=== PATIENT | female | born 1950 | race Caucasian/White ===

== ENCOUNTER → 2016-11-16 | Outpatient (CLI) | payer OTHER ==
[~2016-11-16] MED LIST: DCS100C PO; EST1.25T PO; FENO48TA PO; FLUO20CA42 PO; HYDR1TAB75 PO; IBP800T PO; LOSA1TAB15 PO; OXYC-12 PO; WRF5T PO
== END ==
LOC: RAD 14:50
PROVIDERS: ATTEND Obstetrics & Gynecology
DX: Z12.31 Encounter for screening mammogram for malignant neoplasm of breast (principal)
CPT/HCPCS: 77067

== ENCOUNTER → 2017-11-17 | Outpatient (CLI) | payer OTHER ==
--- NOTE | 2017-11-17 12:05 | Diagnostic Imaging Report ---
Indication: Routine screening. Comparison is made with prior study from 11/16/2016 and 10/21/2015. 2-D and 3-D bilateral screening mammography was performed with CAD. The current study was also evaluated with a Computer Aided Detection (CAD) system. Scattered fibroglandular densities are identified bilaterally. Circumscribed nodule in the posterior lateral right breast appear stable consistent with benign etiology. Tiny benign-appearing nodular densities in left breast appear stable. There are benign calcifications. No spiculated mass or malignant-appearing micro-calcifications are seen. Axillae are unremarkable. IMPRESSION: BI-RADS category 2 No mammographic features suspicious for malignancy are identified. ACR BI-RADS Category 2: Benign findings. Result letter will be mailed to the patient. Note: At least 10% of breast cancer is not imaged by mammography. Dictated by: Dictated on workstation # [id number]
== END ==
LOC: RAD 07:17
PROVIDERS: ATTEND Obstetrics & Gynecology
DX: Z12.31 Encounter for screening mammogram for malignant neoplasm of breast (principal)
CPT/HCPCS: 77067

== ENCOUNTER 2018-03-28 05:30 | Outpatient (CLI) | payer OTHER ==
[~2018-03-28] VITALS: Ht 162.6 cm; Wt 90.7 kg
[2018-03-28] MEDS ORDERED: FENO48TA5 PO (10:27)
[2018-03-28] MEDS ORDERED: LOSA1TAB23 PO (10:27)
[2018-03-28] MEDS ORDERED: FLUO20CA42 PO (10:27)
[2018-03-28] MEDS ORDERED: ESTR0.5T PO (10:27)
[2018-03-28] MEDS ORDERED: SITA1TAB6 PO (10:27)
[2018-03-28] MEDS ORDERED: GLUC-144 PO (10:27)
== END 2018-03-28 12:26 | disposition home or self-care (01) ==
LOC: PREOP 05:30
PROVIDERS: ATTEND Specialist
DX: Z01.818 Encounter for other preprocedural examination (principal)

== ENCOUNTER 2018-04-03 06:15 | Day surgery (SDC) | payer OTHER ==
[~2018-04-03] VITALS: Ht 162.6 cm; Wt 90.7 kg
[~2018-04-03 06:15] MED LIST changes: +ESTR0.5T PO; +FENO48TA5 PO; +GLUC-144 PO; +LOSA1TAB23 PO; +SITA1TAB6 PO
[2018-04-03 06:20] VITALS: BP 151/85
[2018-04-03] MEDS ORDERED: acetaZOLAMIDE ER 500 MG CAP (DIAMOX SEQUELS) PO ONE (06:20)
[2018-04-03] MEDS ORDERED: EPINEPHrine INJECTION 1 MG/ML AMP INJ ONE (06:30)
[2018-04-03] MEDS ORDERED: POVIDONE (BETADINE) OPHTH SOLN 5% 30 ML OP ONE (06:30)
[2018-04-03] MEDS ORDERED: LIDOCAINE PF 1% 2 ML AMP IR PRN (06:30)
[2018-04-03] MEDS ORDERED: BSS 15 ML IR PRN (06:30)
[2018-04-03] MEDS ORDERED: MOXIFLOXACIN OPHTH SOLN 5 MG/ML 0.3 ML SYRINGE OP ONE (06:30)
[2018-04-03] MEDS ORDERED: TIMOLOL MALEATE 0.5% 5 ML (TIMOPTIC) BTL OU PRN (06:30)
[2018-04-03] MEDS: TETRACAINE 0.5% OPHTH SOLN 4 ML BTL (SINGLE DOSE ONLY) OU PRN ×4 (06:34→06:49)
[2018-04-03] MEDS: CYCLOPENTOLATE 1% (CYCLOGYL) 2 ML DROPS OP SCH ×3 (06:41→06:49)
[2018-04-03] MEDS: PHENYLEPHRINE 10% OPHTH (NEO-SYN) 5 ML BTL OU SCH ×3 (06:41→06:49)
[2018-04-03] MEDS ORDERED: MIDAZOLAM 2 MG/2 ML (VERSED) VIAL ONE (06:44)
--- NOTE | 2018-04-03 07:02 | Ophthalmologist Pre-Op Note ---
Pre-Operative Progress Note H&P Reviewed The H&P was reviewed, patient examined and no changes noted. Date H&P Reviewed: Apr 03, 2018 Time H&P Reviewed: 07:02 Pre-Op Dx Cataract, Left Eye NASH BAUTISTA MD Apr 03, 2018 07:02
--- NOTE | 2018-04-03 07:23 | Ophthalmology Operative Report ---
Cataract removal/placement IOL PREOPERATIVE DIAGNOSIS: Cataract Left Eye POSTOPERATIVE DIAGNOSIS: Cataract Left Eye PROCEDURE: Cataract removal and placement of posterior chamber implant, left eye SURGEON: Noam Bautista ANESTHESIA: Topical with sedation COMPLICATIONS: None ESTIMATED BLOOD LOSS: Minimal DESCRIPTION OF PROCEDURE: After proper informed consent was obtained, the patient, a 67 female, was taken to the Operating Room and the left eye was anesthetized with tetracaine. The left eye was then prepped and draped in the usual manner. A wire lid speculum was placed. A paracentesis was made at the left hand position. Preservative free lidocaine was injected into the anterior chamber followed by viscoelastic. A clear corneal incision was made in the temporal position. A capsulorrhexis was preformed and the central nuclear and cortical material were removed. The posterior capsule was polished and an Derrick 21.0 [id number] IOL was placed into the capsular bag. The residual viscoelastic was aspirated and balanced saline solution was injected into the anterior chamber. Moxifloxacin was injected into the anterior chamber. The wound was checked and found to be water tight. The patient tolerated the procedure well without complications. NOAM BAUTISTA MD Apr 03, 2018 07:23
[2018-04-03 07:43] VITALS: BP 136/77
--- NOTE | 2018-04-03 13:15 | Anesthesia-General Post-Op ---
MAC Patient Condition Mental Status/LOC: Same as Preop Cardiovascular: Satisfactory Nausea/Vomiting: Absent Respiratory: Satisfactory Pain: Controlled Complications: Absent Post Op Complications Complications None Follow Up Care/Instructions Patient Instructions None needed. Anesthesiology Discharge Order Discharge Order Patient is doing well, no complaints, stable vital signs, no apparent adverse anesthesia problems. No complications reported per nursing. DEBI TIJERINA CRNA Apr 03, 2018 13:14
== END 2018-04-03 07:35 | disposition home or self-care (01) ==
LOC: SDC 06:15
PROVIDERS: ATTEND Specialist
DX: H25.12 Age-related nuclear cataract, left eye (principal); E11.36 Type 2 diabetes mellitus with diabetic cataract; Z79.84 Long term (current) use of oral hypoglycemic drugs; Z79.899 Other long term (current) drug therapy
CPT/HCPCS: 82962

== ENCOUNTER 2018-08-03 15:21 | Outpatient (CLI) | payer OTHER ==
[~2018-08-03] VITALS: Ht 162.6 cm; Wt 90.7 kg
== END 2018-08-03 15:27 | disposition home or self-care (01) ==
LOC: PREOP 15:21
PROVIDERS: ATTEND Specialist
DX: Z01.818 Encounter for other preprocedural examination (principal)

== ENCOUNTER 2018-08-04 09:08 | Day surgery (SDC) | payer OTHER ==
[~2018-08-04] VITALS: Ht 162.6 cm; Wt 90.7 kg
[2018-08-04] MEDS ORDERED: LIDOCAINE PF 1% 2 ML AMP IR PRN (09:15)
[2018-08-04] MEDS ORDERED: POVIDONE (BETADINE) OPHTH SOLN 5% 30 ML OP ONE (09:15)
[2018-08-04] MEDS ORDERED: TIMOLOL MALEATE 0.5% 5 ML (TIMOPTIC) BTL OU PRN (09:15)
[2018-08-04] MEDS ORDERED: MOXIFLOXACIN OPHTH SOLN 5 MG/ML 0.3 ML SYRINGE OP ONE (09:15)
[2018-08-04] MEDS: TETRACAINE 0.5% OPHTH SOLN 4 ML BTL (SINGLE DOSE ONLY) OU PRN ×4 (09:21→09:38)
[2018-08-04] MEDS: PHENYLEPHRINE 10% OPHTH (NEO-SYN) 5 ML BTL OU SCH ×3 (09:28→09:38)
[2018-08-04] MEDS: CYCLOPENTOLATE 1% (CYCLOGYL) 2 ML DROPS OP SCH ×3 (09:28→09:38)
[2018-08-04 09:36] VITALS: BP 126/81
[2018-08-04] MEDS ORDERED: MIDAZOLAM 2 MG/2 ML (VERSED) VIAL ONE (09:54)
--- NOTE | 2018-08-04 10:16 | Ophthalmologist Pre-Op Note ---
Pre-Operative Progress Note H&P Reviewed The H&P was reviewed, patient examined and no changes noted. Date H&P Reviewed: Aug 04, 2018 Time H&P Reviewed: 10:15 Pre-Op Dx Cataract, Right Eye NASH BAUTISTA MD Aug 04, 2018 10:15
--- OUTSIDE RECORDS SUMMARY | 2018-08-04 10:35 | XMS REPORT | Continuity of Care Document ---
Author Author [facility] Organization [facility] Address Unknown Phone Unavailable Allergies Active Description Code Type Severity Reaction Onset Reported/Identified Relationship to Patient Clinical Status Yes No Known Drug Allergies [id number] Drug Allergy Unknown N/A 01/20/2009 Medications There is no data. Problems Date Dx Coded Attending Type Code Diagnosis Diagnosed By 05/19/2010 Ot 401.9 HYPERTENSION NOS 05/19/2010 Ot 618.5 POSTOP VAGINAL PROLAPSE 02/04/2012 Ot 250.00 DIAB LINDA WO COMPL, TYPE II OR UNSPEC TY 02/04/2012 Ot 401.9 HYPERTENSION NOS 02/04/2012 Ot 715.36 LOC OSTEOARTH NOS-L/LEG 04/03/2012 Ot V43.65 KNEE JOINT REPLACEMENT STATUS 04/03/2012 Ot V54.81 AFTERCARE FOLLOWING JOINT REPLACEMENT 04/03/2012 Ot V57.1 PHYSICAL THERAPY NEC 05/10/2012 Ot 415.19 OTH PULMON EMBOLISM/INFARCT 05/10/2012 Ot V43.65 KNEE JOINT REPLACEMENT STATUS 05/10/2012 Ot V58.61 ANTICOAGULANTS,LT,CURRENT USE 02/16/2013 JESSE REED MD Ot 211.3 BENIGN NEOPLASM LG BOWEL 02/16/2013 JESSE REED MD Ot 562.10 DIVERTICULOSIS COLON (W/O MENT OF HEMORR 02/16/2013 JESSE REED MD Ot V76.51 SCREEN MAL NEOP-COLON 10/15/2014 Ot 285.9 10/15/2014 Ot 618.6 10/15/2014 Ot V72.63 10/15/2014 Ot V74.8 10/15/2014 Ot V76.12 10/15/2014 Ot 715.36 10/15/2014 Ot 791.9 10/15/2014 Ot V72.63 10/15/2014 Ot V72.81 10/15/2014 Ot V74.8 10/15/2014 Ot 415.19 10/15/2014 Ot V43.65 10/15/2014 Ot V58.61 10/15/2014 Ot 784.2 10/15/2014 Ot V76.12 10/15/2014 DEREK CASTANO, JESSE Fallon Ot V72.84 10/15/2014 JUNIOR CASTANO, JC Verduzco Ot 793.89 10/15/2014 JUNIOR CASTANO, JC Verduzco Ot V76.12 10/15/2014 JUNIOR CASTANO, JC Verduzco Ot 610.0 10/15/2014 JUNIOR CASTANO, JC Verduzco Ot 793.80 11/08/2014 JUNIOR CASTANO, JC Verduzco Ot V76.12 10/21/2015 Ot 285.9 ANEMIA NOS 10/21/2015 Ot 618.6 VAGINAL ENTEROCELE 10/21/2015 Ot V72.63 PRE- PROCEDURAL LABORATORY EXAMINATION 10/21/2015 Ot V74.8 SCREEN- BACTERIAL DIS NEC 10/21/2015 Ot V76.12 OTH SCREEN MAMMO-MALIGN NEOPLASM OF RONNIE 10/21/2015 Ot 715.36 LOC OSTEOARTH NOS-L/LEG 10/21/2015 Ot 791.9 ABN URINE FINDINGS NEC 10/21/2015 Ot V72.63 PRE- PROCEDURAL LABORATORY EXAMINATION 10/21/2015 Ot V72.81 EXAM-PRE- OPERATIVE CARDIOVASCULAR 10/21/2015 Ot V74.8 SCREEN- BACTERIAL DIS NEC 10/21/2015 Ot 415.19 OTH PULMON EMBOLISM/INFARCT 10/21/2015 Ot V43.65 KNEE JOINT REPLACEMENT STATUS 10/21/2015 Ot V58.61 ANTICOAGULANTS,LT,CURRENT USE 10/21/2015 Ot 784.2 SWELLING IN HEAD NECK 10/21/2015 Ot V76.12 OTH SCREEN MAMMO-MALIGN NEOPLASM OF RONNIE 10/21/2015 DEREK CASTANO, JESSE Fallon Ot V72.84 EXAM PRE-OPERATIVE NOS 10/21/2015 JUNIOR CASTANO, JC Verduzco Ot 793.89 OTH (ABN) FINDINGS ON RADIOLOGICAL EXAMI 10/21/2015 JC PACHECO MD Ot V76.12 OTH SCREEN MAMMO-MALIGN NEOPLASM OF RONNIE 10/21/2015 JC PACHECO MD Ot 610.0 SOLITARY CYST OF BREAST 10/21/2015 JC APCHECO MD Ot 793.80 UNSPEC ABNORMAL MAMMOGRAM 10/21/2015 JC PACHECO MD Ot V76.12 OTH SCREEN MAMMO-MALIGN NEOPLASM OF RONNIE 10/23/2015 JC PACHECO MD Ot Z12.31 ENCNTR SCREEN MAMMOGRAM FOR MALIGNANT NE 11/03/2015 Ot R92.8 OTH ABN AND INCONCLUSIVE FINDINGS ON DX 11/03/2015 Ot R92.8 OTH ABN AND INCONCLUSIVE FINDINGS ON DX 11/03/2015 Ot R92.8 OTH ABN AND INCONCLUSIVE FINDINGS ON DX 11/06/2015 Ot R92.8 OTH ABN AND INCONCLUSIVE FINDINGS ON DX 11/27/2015 Ot R92.8 OTH ABN AND INCONCLUSIVE FINDINGS ON DX 06/02/2016 Ot 715.36 LOC OSTEOARTH NOS-L/LEG 06/02/2016 Ot 791.9 ABN URINE FINDINGS NEC 06/02/2016 Ot V72.63 PRE- PROCEDURAL LABORATORY EXAMINATION 06/02/2016 Ot V72.81 EXAM-PRE- OPERATIVE CARDIOVASCULAR 06/02/2016 Ot V74.8 SCREEN- BACTERIAL DIS NEC 06/02/2016 Ot 415.19 OTH PULMON EMBOLISM/INFARCT 06/02/2016 Ot V43.65 KNEE JOINT REPLACEMENT STATUS 06/02/2016 Ot V58.61 ANTICOAGULANTS,LT,CURRENT USE 06/02/2016 Ot 784.2 SWELLING IN HEAD NECK 06/02/2016 Ot V76.12 OTH SCREEN MAMMO-MALIGN NEOPLASM OF RONNIE 06/02/2016 DEREK CASTANO, JESSE Fallon Ot V72.84 EXAM PRE-OPERATIVE NOS 06/02/2016 JC PACHECO MD Ot 793.89 OTH (ABN) FINDINGS ON RADIOLOGICAL EXAMI 06/02/2016 JC PACHECO MD, Ot V76.12 OTH SCREEN MAMMO-MALIGN NEOPLASM OF RONNIE 06/02/2016 JC PACHECO MD Ot 610.0 SOLITARY CYST OF BREAST 06/02/2016 JC PACHECO MD Ot 793.80 UNSPEC ABNORMAL MAMMOGRAM 06/02/2016 JC PACHECO MD Ot V76.12 OTH SCREEN MAMMO-MALIGN NEOPLASM OF RONNIE 06/02/2016 JC PACHECO MD, Ot Z12.31 ENCNTR SCREEN MAMMOGRAM FOR MALIGNANT NE 06/02/2016 Ot R92.8 OTH ABN AND INCONCLUSIVE FINDINGS ON DX 06/03/2016 Ot 715.36 LOC OSTEOARTH NOS-L/LEG 06/03/2016 Ot 791.9 ABN URINE FINDINGS NEC 06/03/2016 Ot V72.63 PRE- PROCEDURAL LABORATORY EXAMINATION 06/03/2016 Ot V72.81 EXAM-PRE- OPERATIVE CARDIOVASCULAR 06/03/2016 Ot V74.8 SCREEN- BACTERIAL DIS NEC 06/03/2016 Ot 415.19 OTH PULMON EMBOLISM/INFARCT 06/03/2016 Ot V43.65 KNEE JOINT REPLACEMENT STATUS 06/03/2016 Ot V58.61 ANTICOAGULANTS,LT,CURRENT USE 06/03/2016 Ot 784.2 SWELLING IN HEAD NECK 06/03/2016 Ot V76.12 OTH SCREEN MAMMO-MALIGN NEOPLASM OF RONNIE 06/03/2016 DEREK CASTANO, JESSE Fallon Ot V72.84 EXAM PRE-OPERATIVE NOS 06/03/2016 JC PACHECO MD Ot 793.89 OTH (ABN) FINDINGS ON RADIOLOGICAL EXAMI 06/03/2016 JC PACHECO MD, Ot V76.12 OTH SCREEN MAMMO-MALIGN NEOPLASM OF RONNIE 06/03/2016 JC PACHECO MD Ot 610.0 SOLITARY CYST OF BREAST 06/03/2016 JC PACHECO MD Ot 793.80 UNSPEC ABNORMAL MAMMOGRAM 06/03/2016 JC PACHECO MD, Ot V76.12 OTH SCREEN MAMMO-MALIGN NEOPLASM OF RONNIE 06/03/2016 JC PACHECO MD, Ot Z12.31 ENCNTR SCREEN MAMMOGRAM FOR MALIGNANT NE 06/03/2016 Ot R92.8 OTH ABN AND INCONCLUSIVE FINDINGS ON DX 11/17/2016 JC PACHECO MD, Ot Z12.31 ENCNTR SCREEN MAMMOGRAM FOR MALIGNANT NE 11/18/2017 JC PACHECO MD, Ot Z12.31 ENCNTR SCREEN MAMMOGRAM FOR MALIGNANT NE 03/28/2018 NASH BAUTISTA MD Ot Z01.818 ENCOUNTER FOR OTHER PREPROCEDURAL EXAMIN 04/06/2018 NASH BAUTISTA MD Ot E11.36 TYPE 2 DIABETES MELLITUS WITH DIABETIC C 04/06/2018 NASH BAUTISTA MD Ot H25.12 AGE-RELATED NUCLEAR CATARACT, LEFT EYE 04/06/2018 NASH BAUTISTA MD Ot Z79.84 LONGTERM (CURRENT) USE OF ORAL HYPOGLYC 04/06/2018 NASH BAUTISTA MD Ot Z79.899 OTHER LONGTERM (CURRENT) DRUG THERAPY 08/03/2018 NASH BAUTISTA MD Ot Z01.818 ENCOUNTER FOR OTHER PREPROCEDURAL EXAMIN 08/03/2018 NASH BAUTISTA MD, Ot Z01.818 ENCOUNTER FOR OTHER PREPROCEDURAL EXAMIN Procedures Code Description Performed By Performed On 81.54 TOTAL KNEE REPLACEMENT 01/31/2012 Results Test Result Range Capillary blood glucose measurement by glucometer (mass/volume) - 04/03/18 06: 27 Capillary blood glucose measurement by glucometer (mass/volume) 115 mg/dL 70-110 Encounters ACCT No. Visit Date/Time Discharge Status Pt. Type Provider Facility Loc./Unit Complaint [id number] 08/03/2018 15:21:00 08/03/2018 15:27:00 DIS Outpatient NASH BAUTISTA MD [facility] PREOP RIGHT CATARACT [id number] 04/18/2018 12:00:00 04/18/2018 23:59:59 CLS Preadmit NASH BAUTISTA MD [facility] CATARACT RIGHT EYE [id number] 04/03/2018 06:15:00 04/03/2018 07:35:00 DIS Outpatient NASH BAUTISTA MD [facility] CATARACT LEFT EYE [id number] 03/28/2018 05:30:00 03/28/2018 12:26:00 DIS Outpatient NASH BAUTISTA MD [facility] PREOP LEFT CATARACT [id number] 11/17/2017 07:17:00 11/17/2017 23:59:59 CLS Outpatient JC PACHECO MD [facility] RAD ROUTINE [id number] 11/16/2016 14:50:00 11/16/2016 23:59:59 CLS Outpatient JC PACHECO MD [facility] RAD Z12.31N ROUTINE SCREENING [id number] 10/21/2015 14:58:00 10/21/2015 23:59:59 CLS Outpatient JC PACHECO MD [facility] RAD SCREENING [id number] 10/15/2014 09:18:00 10/15/2014 23:59:59 CLS Outpatient JC PACHECO MD [facility] RAD SCREENING [id number] 01/08/2014 13:23:00 01/08/2014 23:59:59 CLS Outpatient JC PACHECO MD [facility] RAD 6 MONTH FOLLOW UP [id number] 07/03/2013 12:42:00 07/03/2013 23:59:59 CLS Outpatient JC PACHECO MD [facility] RAD ABNORMAL MAMMO [id number] 06/27/2013 09:14:00 06/27/2013 23:59:59 CLS Outpatient JC PACHECO MD [facility] RAD SCREENING [id number] 02/16/2013 07:23:00 02/16/2013 10:40:00 DIS Outpatient JESSE REED MD [facility] SCREENING [id number] 02/14/2013 07:19:00 02/14/2013 23:59:59 CLS Outpatient JESSE REED MD [facility] PREOP SCREENING [id number] 08/04/2018 12:30:00 PEN PreadNASH Toro MD [facility] SD RIGHT CATARACT [id number] 10/31/2015 07:51:00 Document Registration [id number] 10/15/2014 09:19:00 Document Registration [id number] 05/22/2012 13:25:00 Document Registration [id number] 05/11/2012 00:00:00 Document Registration [id number] 03/23/2012 14:50:00 Document Registration [id number] 02/22/2012 09:44:00 Document Registration [id number] 01/31/2012 06:06:00 Document Registration [id number] 01/27/2012 13:25:00 Document Registration [id number] 10/28/2010 13:50:00 Document Registration [id number] 05/18/2010 06:26:00 Document Registration [id number] 05/15/2010 10:09:00 Document Registration
--- NOTE | 2018-08-04 10:38 | Ophthalmology Operative Report ---
Cataract removal/placement IOL PREOPERATIVE DIAGNOSIS: Cataract Right Eye POSTOPERATIVE DIAGNOSIS: Cataract Right Eye PROCEDURE: Cataract removal and placement of posterior chamber implant, right eye SURGEON: Noam Bautista ANESTHESIA: Topical with sedation COMPLICATIONS: None ESTIMATED BLOOD LOSS: Minimal DESCRIPTION OF PROCEDURE: After proper informed consent was obtained, the patient, a 68 female, was taken to the Operating Room and the right eye was anesthetized with tetracaine. The right eye was then prepped and draped in the usual manner. A wire lid speculum was placed. A paracentesis was made at the left hand position. Preservative free lidocaine was injected into the anterior chamber followed by viscoelastic. A clear corneal incision was made in the temporal position. A capsulorrhexis was preformed and the central nuclear and cortical material were removed. The posterior capsule was polished and Derrick 21.0 [id number] IOL was placed into the capsular bag. The residual viscoelastic was aspirated and balanced saline solution was injected into the anterior chamber. Moxifloxacin was injected into the anterior chamber. The wound was checked and found to be water tight. The patient tolerated the procedure well without complications. NOAM BAUTISTA MD Aug 04, 2018 10:38
[2018-08-04 10:49] VITALS: BP 116/62
[2018-08-04] MEDS ORDERED: acetaZOLAMIDE ER 500 MG CAP (DIAMOX SEQUELS) PO ONE (11:00)
--- NOTE | 2018-08-04 13:14 | Anesthesia-General Post-Op ---
MAC Patient Condition Mental Status/LOC: Same as Preop Cardiovascular: Satisfactory Nausea/Vomiting: Absent Respiratory: Satisfactory Pain: Controlled Complications: Absent Post Op Complications Complications None Follow Up Care/Instructions Patient Instructions None needed. Anesthesiology Discharge Order Discharge Order Patient is doing well, no complaints, stable vital signs, no apparent adverse anesthesia problems. No complications reported per nursing. CABRERA GARCIA CRNA Aug 04, 2018 13:14
== END 2018-08-04 10:49 | disposition home or self-care (01) ==
LOC: SDC 09:08
PROVIDERS: ATTEND Specialist
DX: H25.11 Age-related nuclear cataract, right eye (principal); E11.36 Type 2 diabetes mellitus with diabetic cataract; E78.00 Pure hypercholesterolemia, unspecified; Z79.84 Long term (current) use of oral hypoglycemic drugs; Z79.899 Other long term (current) drug therapy
CPT/HCPCS: 82962

== ENCOUNTER 2018-09-11 06:17 | Outpatient (CLI) | payer OTHER ==
[~2018-09-11] VITALS: Ht 162.6 cm; Wt 90.7 kg
[2018-09-11] MEDS ORDERED: LOVA20TA2 PO (12:32)
== END 2018-09-11 12:45 | disposition home or self-care (01) ==
LOC: PREOP 06:17
PROVIDERS: ATTEND Internal Medicine
DX: Z01.818 Encounter for other preprocedural examination (principal)

== ENCOUNTER 2018-09-15 08:49 | Day surgery (SDC) | payer OTHER ==
--- NOTE | 2018-09-08 04:32 | HISTORY AND PHYSICAL ---
DATE OF SERVICE: COLONOSCOPY HISTORY AND PHYSICAL DATE OF ADMISSION: 09/15/2018 HISTORY OF PRESENT ILLNESS: The patient is a 68-year-old white female, referred by Dr. Amezquita for screening colonoscopy. I performed one other colonoscopy on her five years ago, at which time she had a sessile tubular adenoma removed from the sigmoid colon and a hyperplastic polyp also removed from the sigmoid colon. The patient reports that she has been feeling well. There have been no changes in family history. She is not aware of any family history for GI tract malignancy including colon cancer. She has had no change in bowel habits and denies melena or bright red blood per rectum. She also denies abdominal pain. PAST MEDICAL HISTORY: Significant for hypertension, hyperlipidemia and osteoarthritis predominantly involving the knees and depression. She has no past history of cardiovascular disease or cerebrovascular disease. PAST SURGICAL HISTORY: Significant for bilateral total knee replacement greater than 5 years ago. She had ROSALINDA and BSO for benign reasons roughly 8 to 9 years ago and underwent rectocele repair in 2010 and bunionectomy in 1999. She has had I believe bilateral cataract extraction in the last several years and left macular hole repair. MEDICATIONS ON ADMISSION: Include Durezol 0.05% eye drops bilaterally, estradiol 1 mg daily, Janumet daily, losartan 100/25 daily, fenofibrate 160 mg daily, fluoxetine 20 mg daily and Osteo Bi-Flex b.i.d. 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 PHYSICAL EXAMINATION: GENERAL: Reveals a pleasant white female who appears to be in no acute distress. VITAL SIGNS: Compared to five years ago, her weight is down 25 pounds, 211 pounds, blood pressure 122/80. HEENT: Unremarkable. Sclerae are nonicteric. NECK: Revealed no JVD, adenopathy or bruits. CHEST: Clear to auscultation. CARDIOVASCULAR: Reveals regular rate and rhythm without murmur, S3 or S4. ABDOMEN: Soft, supple without mass, organomegaly or tenderness. EXTREMITIES: Reveal no cyanosis, clubbing or edema. ASSESSMENT AND PLAN: The patient is set up for screening colonoscopy on 09/15/2018. Prep instructions with Suprep kit were given and questions were answered. I thank you for the referral of this pleasant lady. Job ID: [id number] DocumentID: [id number] Dictated Date: 09/05/2018 12:06:17 Hospice Manager Date: 09/05/2018 12:29:50 Dictated By: JESSE REED MD
[~2018-09-15] VITALS: Ht 162.6 cm; Wt 90.7 kg
[~2018-09-15 08:49] MED LIST changes: +LOVA20TA2 PO
--- OUTSIDE RECORDS SUMMARY | 2018-09-15 08:53 | XMS REPORT | Continuity of Care Document ---
Author Author [facility] Organization [facility] Address Unknown Phone Unavailable Allergies Active Description Code Type Severity Reaction Onset Reported/Identified Relationship to Patient Clinical Status Yes No Known Drug Allergies [id number] Drug Allergy Unknown N/A 01/20/2009 Medications There [...] 610.0 SOLITARY CYST OF BREAST 10/21/2015 JC PACHECO MD Ot 793.80 UNSPEC ABNORMAL MAMMOGRAM 10/21/2015 [...] EYE 04/06/2018 NASH BAUTISTA MD Ot Z79.84 [facility] (CURRENT) USE OF ORAL HYPOGLYC 04/06/2018 NASH BAUTISTA MD Ot Z79.899 OTHER [facility] (CURRENT) DRUG THERAPY 08/03/2018 NASH BAUTISTA MD Ot Z01.818 ENCOUNTER FOR OTHER PREPROCEDURAL EXAMIN 08/03/2018 NASH BAUTISTA MD Ot Z01.818 ENCOUNTER FOR OTHER PREPROCEDURAL EXAMIN 08/04/2018 NASH BAUTISTA MD Ot E11.36 TYPE 2 DIABETES MELLITUS WITH DIABETIC C 08/04/2018 NASH BAUTISTA MD Ot E78.00 PURE HYPERCHOLESTEROLEMIA, UNSPECIFIED 08/04/2018 NASH BAUTISTA MD Ot H25.11 AGE-RELATED NUCLEAR CATARACT, RIGHT EYE 08/04/2018 NASH BAUTISTA MD Ot Z79.84 DIRECTOR COUNCIL ON AGING (CURRENT) USE OF ORAL HYPOGLYC 08/04/2018 NASH BAUTISTA MD Ot Z79.899 OTHER [facility] (CURRENT) DRUG THERAPY 09/11/2018 JESSE REED MD Ot Z01.818 ENCOUNTER FOR OTHER PREPROCEDURAL EXAMIN Procedures Code Description Performed By Performed On 81.54 TOTAL KNEE REPLACEMENT 01/31/2012 Results Test Result Range Capillary blood glucose measurement by glucometer (mass/volume) - 04/03/18 06: 27 Capillary blood glucose measurement by glucometer (mass/volume) 115 mg/dL 70-110 Capillary blood glucose measurement by glucometer (mass/volume) - 08/04/18 09: 42 Capillary blood glucose measurement by glucometer (mass/volume) 126 mg/dL 70-110 Encounters ACCT No. Visit Date/Time Discharge Status Pt. Type Provider Facility Loc./Unit Complaint [id number] 09/11/2018 06:17:00 09/11/2018 12:45:00 DIS Outpatient JESSE REED MD [facility] PREOP COLONOSCOPY [id number] 08/04/2018 09:08:00 08/04/2018 10:49:00 DIS Outpatient NASH BAUTISTA MD [facility] SDC RIGHT CATARACT [id number] 08/03/2018 15:21:00 08/03/2018 15:27:00 DIS Outpatient NASH BAUTISTA MD [facility] PREOP RIGHT CATARACT [id number] 04/18/2018 12:00:00 04/18/2018 23:59:59 CLS Preadmit NASH BAUTISTA MD [facility] SDC CATARACT RIGHT EYE [id number] 04/03/2018 06:15:00 04/03/2018 07:35:00 DIS Outpatient NASH BAUTISTA MD [facility] SDC CATARACT LEFT EYE [id number] 03/28/2018 05:30:00 03/28/2018 12:26:00 DIS Outpatient NASH BAUTISTA MD [facility] PREOP LEFT CATARACT [id number] 11/17/2017 07:17:00 11/17/2017 23:59:59 CLS Outpatient JC PACHECO MD [facility] RAD ROUTINE [id number] 11/16/2016 14:50:00 11/16/2016 23:59:59 CLS Outpatient JC PACHECO MD [facility] RAD Z12.31N ROUTINE SCREENING [id number] 10/21/2015 14:58:00 10/21/2015 23:59:59 CLS Outpatient JC PACHECO MD [facility] RAD SCREENING [id number] 10/15/2014 09:18:00 10/15/2014 23:59:59 CLS Outpatient JC PACHECO MD [facility] RAD SCREENING [id number] 01/08/2014 13:23:00 01/08/2014 23:59:59 CLS Outpatient JC PACHECO MD [facility] RAD 6 MONTH FOLLOW UP [id number] 07/03/2013 12:42:00 07/03/2013 23:59:59 CLS Outpatient JC PACHECO MD [facility] RAD ABNORMAL MAMMO [id number] 06/27/2013 09:14:00 06/27/2013 23:59:59 CLS Outpatient JC PACHECO MD [facility] RAD SCREENING [id number] 02/16/2013 07:23:00 02/16/2013 10:40:00 DIS Outpatient JESSE REED MD [facility] SDC SCREENING [id number] 02/14/2013 07:19:00 02/14/2013 23:59:59 CLS Outpatient JESSE REED MD [facility] PREOP SCREENING [id number] 09/15/2018 10:00:00 PEN Preadmit JESSE REED MD [facility] ENDO SCREENING [id number] 10/31/2015 07:51:00 Document Registration [id number] 10/15/2014 09:19:00 Document Registration [id number] 05/22/2012 13:25:00 Document Registration [id number] 05/11/2012 00:00:00 Document Registration [id number] 03/23/2012 14:50:00 Document Registration [id number] 02/22/2012 09:44:00 Document Registration [id number] 01/31/2012 06:06:00 Document Registration [id number] 01/27/2012 13:25:00 Document Registration [id number] 10/28/2010 13:50:00 Document Registration [id number] 05/18/2010 06:26:00 Document Registration [id number] 05/15/2010 10:09:00 Document Registration
[2018-09-15] MEDS ORDERED: LACTATED RINGERS 1,000 ML IV ONE (09:06)
[2018-09-15] MEDS ORDERED: LACTATED RINGERS 1,000 ML IV STA (09:33)
[2018-09-15] MEDS ORDERED: LIDOCAINE JELLY 2% 6 ML SYRINGE MM PRN (09:45)
[2018-09-15] MEDS ORDERED: fentaNYL INJECTION 100 MCG/2 ML AMP IVP ONE (09:45)
[2018-09-15] MEDS ORDERED: MIDAZOLAM 2 MG/2 ML (VERSED) VIAL IVP ONE (09:45)
[2018-09-15 09:57] VITALS: BP 127/73
[2018-09-15] MEDS ORDERED: MIDAZOLAM 2 MG/2 ML (VERSED) VIAL ONE ×2 (10:11)
[2018-09-15] MEDS ORDERED: fentaNYL INJECTION 100 MCG/2 ML AMP ONE (10:12)
[2018-09-15] MEDS ORDERED: LIDOCAINE JELLY 2% 6 ML SYRINGE ONE (10:12)
--- NOTE | 2018-09-15 10:28 | Pre-Op Note & Conscious Sedat ---
Pre-Operative Progress Note H&P Reviewed The H&P was reviewed, patient examined and no changes noted. Date H&P Reviewed: Sep 15, 2018 Time H&P Reviewed: 10:00 Conscious Sedation Pre-Proced ASA Score 2 For ASA 3 and 4: Consider anesthesia and medical clearance. Also, for patients with a history of failed moderate sedation consider anesthesia. Airway Lungs Heart ASA score ASA 1: a normal healthy patient ASA 2: a patient with a mild systemic disease (mid diabetes, controlled hypertension, obesity ASA 3: a patient with a severe systemic disease that limits activity (angina , COPD, prior Myocardial infarction) ASA 4: a patient with an incapacitating disease that is a constant threat to life (CHF, renal failure) ASA 5: a moribund patient not expected to survive 24 hrs. (ruptured aneurysm) ASA 6: a declared brain- patient whose organs are being harvested. For emergent operations, add the letter E after the classification Mallampati Classification Grade 2 Sedation Plan Analgesia, Amnesia, Plan communicated to team members, Discussed options with patient/fam, Discussed risks with patient/fam The patient is an appropriate candidate to undergo the planned procedure, sedation, and anesthesia. The patient immediately re-assessed prior to indication. JESSE REED MD Sep 15, 2018 10:28
[2018-09-15 10:55] VITALS: BP 127/70
[2018-09-15 11:25] VITALS: BP 125/65
[2018-09-15 11:35] VITALS: BP 125/65
--- NOTE | 2018-09-15 20:08 | OPERATIVE REPORT ---
DATE OF SERVICE: 09/15/2018 COLONOSCOPY SUMMARY INDICATION FOR THE PROCEDURE: Screening colonoscopy. The patient was placed in left lateral decubitus position. Prior to undergoing colonoscopy, digital rectal evaluation was performed. Anal sphincter tone was normal and the perianal reflex was intact. No abnormalities were noted on digital inspection of the anal canal or distal rectal vault. The colonoscope was then inserted into the rectum under direct visualization and advanced to the cecum. The cecum was identified by identification of the ileocecal valve and cecal strap. Photographic documentation was obtained. Careful inspection was made as the colonoscope was withdrawn. FINDINGS: There was no evidence for internal or external hemorrhoids and the rectum was unremarkable. The sigmoid colon revealed a few small proximal diverticulum, otherwise unremarkable. The descending colon was unremarkable. Present in the distal transverse colon was a diminutive 3 mm sessile polyp that was biopsied, ablated and submitted for histopathology. The remainder of the transverse colon and hepatic flexure was unremarkable. Present in the distal ascending colon was a diminutive 3 mm sessile polyp. It was biopsied and ablated and submitted for histopathology with minimal blood loss. A similar polyp was noted in the proximal ascending colon, it was well biopsied and ablated with minimal blood loss. The cecum was unremarkable. ASSESSMENT: Three small polyps were removed today, one from the distal transverse colon, the other 2 from the ascending colon, one proximally and one distally. Mild diverticular disease confined to the sigmoid colon was present. No other abnormalities were noted on today's procedure. As long as there are no surprises on histopathology report, we would advocate consideration for repeat surveillance colonoscopy in 3 years. I thank you for the referral of this pleasant lady. Sincerely, Job ID: [id number] DocumentID: [id number] Dictated Date: 09/15/2018 11:43:27 [employer] Date: 09/15/2018 20:07:50 Dictated By: JESSE REED MD
== END 2018-09-15 11:35 | disposition home or self-care (01) ==
LOC: ENDO 08:49
PROVIDERS: ATTEND Internal Medicine
DX: Z12.11 Encounter for screening for malignant neoplasm of colon (principal); D12.2 Benign neoplasm of ascending colon; D12.3 Benign neoplasm of transverse colon; K57.30 Diverticulosis of large intestine without perforation or abscess without bleeding; Z86.010 Personal history of colon polyps; I10 Essential (primary) hypertension; E78.5 Hyperlipidemia, unspecified; F32.9 Major depressive disorder, single episode, unspecified; Z79.899 Other long term (current) drug therapy